=== PATIENT | male | born 1945 | race Caucasian/White ===

== ENCOUNTER 2017-04-14 09:59 | Day surgery (SDC) | payer MEDICARE, OTHER ==
[~2017-04-14 09:59] MED LIST: Acetaminophen TAB* 325 MG PO PRN; Buffered Lidocaine 0.9% SYRIN* 5 ML/SYR SYRINGE INTRADERM ONE
[2017-04-14] MEDS ORDERED: Lidocaine 2% EPI 1:200000 MPF* 20 ML VIAL ONE (10:46)
[2017-04-14] MEDS ORDERED: Buffered Lidocaine 0.9% SYRIN* 5 ML/SYR SYRINGE ONE (10:46)
[2017-04-14] MEDS ORDERED: Povidone Iodine 5% OPTH* 30 ML BTL ONE (10:46)
[2017-04-14] MEDS ORDERED: Proparacaine 0.5% OPHTH.SOL* 15 ML BTL ONE (10:46)
[2017-04-14] MEDS ORDERED: Neomycin/Polymy/Dex OPTH.SUSP* MAXITROL 0.1% 5 ML ONE (10:46)
[2017-04-14] MEDS ORDERED: Phenylephrine 2.5% OPTH.SOL* 2 ML BTL ONE (10:46)
[2017-04-14] MEDS ORDERED: Flurbiprofen 0.03% OPTH.SOL* 2.5 ML BTL ONE (10:46)
[2017-04-14] MEDS ORDERED: Cyclopentolate 1% OPTH.SOL* 2 ML BTL ONE (10:46)
[2017-04-14] MEDS ORDERED: acetaZOLAMIDE TAB* 250 MG ONE (10:46)
[2017-04-14] MEDS ORDERED: Lidocaine 1% MPF* 2 ML VIAL ONE (10:46)
[2017-04-14] MEDS ORDERED: Midazolam* 1 MG/ML 2 ML VIAL (2 MG) ONE (11:22)
[2017-04-14 12:40] VITALS: BP 154/90
--- NOTE | 2017-04-15 02:49 | OP ---
DATE OF OPERATION: 04/14/17 [facility] DATE OF : 41 SURGEON: Lennox Stoddard M.D. PREOPERATIVE DIAGNOSIS: Cataract, left eye. POSTOPERATIVE DIAGNOSIS: Cataract, left eye. OPERATIVE PROCEDURE: Phacoemulsification, left eye, with IOL. DESCRIPTION OF PROCEDURE: The patient was brought to the operating room after being given 1/2% Alcaine with epinephrine drops in the preoperative area. The eye was prepped and draped in the usual sterile fashion. Sterile drape and eyelid speculum were placed. Again, topical 1/2% Alcaine with epinephrine was given. A paracentesis incision was made at the 3 o'clock position with the No.75 blade. Clear cornea incision 2.2 x 2.2-mm was created at the 6 o'clock position starting at the anterior limbus using the 2.2-mm keratome. The anterior chamber was irrigated with 0.4 mL of 1% non-preservative intracameral lidocaine and filled with DisCoVisc. A capsulorrhexis was completed using the cystotome and the Utrata forceps. Hydrodissection was performed with balanced salt solution. The lens nucleus was removed with the Phacoemulsification handpiece without incident. Cortex was removed with the irrigation-aspiration handpiece. The capsular bag was re-inflated using DisCoVisc and an SN60WF 21.5 implant was inserted with the shooter. The irrigation-aspiration handpiece was used to remove all residual DisCoVisc. The eye was refilled with balanced salt solution and the wound checked and found to be watertight. Topical Maxitrol drops were given. [id number]/[facility] #: [id number] [facility]ITAL[facility]
== END 2017-04-14 12:52 | disposition home or self-care (01) ==
LOC: OREAST 09:59
PROVIDERS: ATTEND Specialist
DX: H26.9 Unspecified cataract (principal); Z87.891 Personal history of nicotine dependence
CPT/HCPCS: A9270-GY; J2250; V2632

== ENCOUNTER 2017-04-21 10:36 | Day surgery (SDC) | payer MEDICARE, OTHER ==
[~2017-04-21 10:36] MED LIST changes: +Buffered Lidocaine 0.9% SYRIN* 5 ML/SYR SYRINGE ONE; +Cyclopentolate 1% OPTH.SOL* 2 ML BTL ONE; +Ketorolac 0.5% OPHTH (NF) 0.5 % 5 ML BTL ONE; +Lidocaine 1% MPF* 2 ML VIAL ONE; +Lidocaine 2% EPI 1:200000 MPF* 20 ML VIAL ONE; +Neomycin/Polymy/Dex OPTH.SUSP* MAXITROL 0.1% 5 ML ONE; +Phenylephrine 2.5% OPTH.SOL* 2 ML BTL ONE; +Povidone Iodine 5% OPTH* 30 ML BTL ONE; +Proparacaine 0.5% OPHTH.SOL* 15 ML BTL ONE; +acetaZOLAMIDE TAB* 250 MG ONE
[2017-04-21] MEDS ORDERED: Midazolam* 1 MG/ML 2 ML VIAL (2 MG) ONE (13:01)
[2017-04-21] MEDS ORDERED: fentaNYL* 50 MCG/ML 2 ML VIAL (100 MCG VIAL) ONE (13:09)
[2017-04-21 14:16] VITALS: BP 148/70
--- NOTE | 2017-04-21 15:48 | OP ---
DATE OF OPERATION: 04/21/2017 - [facility] DATE OF : 1945. SURGEON: Lennox Stoddard M.D. PREOPERATIVE DIAGNOSIS: Cataract right eye. POSTOPERATIVE DIAGNOSIS: Cataract right eye. OPERATIVE PROCEDURE: Phacoemulsification right eye with IOL. DESCRIPTIO OF PROCEDURE: The patient was brought to the operating room after being given 1/2% Alcaine with epinephrine drops in the preoperative area. The eye was prepped and draped in the usual sterile fashion. Sterile drape and eyelid speculum were placed. Again, topical 1/2% Alcaine with epinephrine was given. A paracentesis incision was made at the 9 o'clock position with the No.75 blade. Clear cornea incision 2.2 x 2.2-mm was created at the 12 o'clock position starting at the anterior limbus using the 2.2-mm keratome. The anterior chamber was irrigated with 0.4 mL of 1% non-preservative intracameral lidocaine and filled with DisCoVisc. A capsulorrhexis was completed using the cystotome and the Utrata forceps. Hydrodissection was performed with balanced salt solution. The lens nucleus was removed with the Phacoemulsification handpiece without incident. Cortex was removed with the irrigation-aspiration handpiece. The capsular bag was re-inflated using DisCoVisc and an SN60WF 21.5 implant was inserted with the shooter. The irrigation-aspiration handpiece was used to remove all residual DisCoVisc. The eye was refilled with balanced salt solution and the wound checked and found to be watertight. Topical Maxitrol drops were given. [id number]/[facility] #: [id number] [facility]ENTERMisael
== END 2017-04-21 13:27 | disposition home or self-care (01) ==
LOC: OREAST 10:36
PROVIDERS: ATTEND Specialist
DX: H25.811 Combined forms of age-related cataract, right eye (principal); Z96.1 Presence of intraocular lens; H40.013 Open angle with borderline findings, low risk, bilateral; F32.9 Major depressive disorder, single episode, unspecified; F41.9 Anxiety disorder, unspecified; Z87.891 Personal history of nicotine dependence
CPT/HCPCS: A9270-GY; J2250; J3010; V2632

== ENCOUNTER 2018-09-03 19:31 | Observation (INO) | payer MEDICARE, OTHER ==
--- NOTE | 2018-09-03 19:39 | ED ---
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 Pt had driven downtown, and was walking to a store, when he suddenly felt dizzy and passed out. Patient says he was feeling OK earlier in the day. Pt has a known cough which is at baseline, and he has been seeing a spine specialist because his breathing has been "off" for the past few months. He uses an oxygen concentrator at home. Associated sx: SOB, incontinence. Denies fever, CP, pedal edema. He has not taken drugs today nor drank ETOH. He is a former smoker. PMHx: bipolar. The patient lives alone and is retired. - History Of Current Complaint Hx Obtained From: Patient, EMS Onset/Duration: Sudden Onset, Resolved - syncope Associated Signs And Symptoms: Positive: Dizziness, SOB, Other - pos: incontinence. Negative: Chest Pain, Edema, Fever - Allergies/Home Medications Allergies/Adverse Reactions: Allergies Allergy/AdvReac Type Severity Reaction Status Date / Time No Known Allergies Allergy Verified 04/21/17 10:57 Home Medications: Home Medications predniSONE TAB* [Deltasone 20 MG TAB*] 40 mg PO DAILY 09/03/18 [History Confirmed 09/03/18] PMH/Surg Hx/FS Hx/Imm Hx Previously Healthy: No GI History: Reports: Hx Ulcer - HX OF Musculoskeletal History: Reports: Hx Tendonitis - ANKLES? Sensory History: Reports: Hx Cataracts - BILATERAL, Hx Contacts or Glasses - READING GLASSES Denies: Hx Hearing Aid Opthamlomology History: Reports: Hx Cataracts - BILATERAL, Hx Contacts or Glasses - READING GLASSES - Surgical History Surgery Procedure, Year, and Place: tonsillectomy A CHILD Hx Anesthesia Reactions: No - Family History Family History: neg: anaesthesia reaction - Social History Occupation: Retired Lives: Alone Alcohol Use: Daily Alcohol Amount: 3 OUNCES DAILY Substance Use Type: Reports: None Hx Tobacco Use: No Smoking Status (MU): Former Smoker Amount Used/How Often: < 1/2 PPPD OFF AND ON X 10 YEARS Have You Smoked in the Last Year: No Review of Systems Negative: Fever Negative: Chest Pain Positive: Shortness Of Breath Positive: incontinence Negative: Edema Neurological: Other - pos: dizziness Positive: Syncope All Other Systems Reviewed And Are Negative: Yes Physical Exam - Summary Physical Exam Summary: Appearance: Elderly male who is lying in bed in obvious repiratory distress, tachypnic and with labored breathing. Skin: Warm, dry, no obvious rash Eyes: sclera anicteric, no conjunctival pallor ENT: mucous membranes moist, pharynx appears normal Neck: Supple, nontender Respiratory: Breath sounds clear, good aeration Cardiovascular: Normal S1, S2. No murmurs. Normal distal pulses in tibial and radial bilaterally. Mild pedal edema. Abdomen: Soft, nontender, normal active bowel sounds present Musculoskeletal: Normal, Strength/ROM Intact. Mild pedal edema. Neurological: A&Ox3, awake and alert, mentation is normal, speech is fluent and appropriate Psychiatric: affect is normal, does not appear anxious or depressed Triage Information Reviewed: Yes Vital Signs Reviewed: Yes Diagnostics - Laboratory Result Diagrams: 09/03/18 20:26 09/03/18 20:26 Lab Statement: Any lab studies that have been ordered have been reviewed, and results considered in the medical decision making process. - CT CTA CT Interpretation Completed By: Radiologist Summary of CT Findings: IMPRESSION: 1. No pulmonary embolus. However, the main pulmonary artery is mildly enlarged suggesting pulmonary arterial hypertension. 2. Bilateral fibrotic lung disease with peripheral and basal predominance and superimposed centrilobular emphysema. Patchy mid and upper lung groundglass densities may represent activity of underlying lung disease versus mild edema with infection less likely. 3. Mild mediastinal adenopathy, likely reactive. ED provider has reviewed this report. - EKG 19:41 Cardiac Rate: NL - 98 bpm EKG Rhythm: Sinus Rhythm Summary of EKG Findings: Consider R ventricular hypertrophy. 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 Pt had driven downtown, and was walking into a store, when he suddenly felt dizzy and passed out. Patient says he was feeling OK earlier in the day. Pt has a known cough which is at baseline, and he has been seeing a spine specialist because his breathing has been "off" for the past few months. He uses an oxygen concentrator at home. Associated sx: SOB, incontinence. Denies fever, CP, pedal edema. He has not taken drugs today nor drank ETOH. He is a former smoker. PMHx: bipolar. The patient lives alone and is retired. Critical lab values include: lactic acid 3.7, troponin: 0.18. EKG shows SR at 98 bpm, consider R ventricular hypertrophy. Rapid flu A and B are negative. CTA results show "1. No pulmonary embolus. However, the main pulmonary artery is mildly enlarged suggesting pulmonary arterial hypertension. 2. Bilateral fibrotic lung disease with peripheral and basal predominance and superimposed centrilobular emphysema. Patchy mid and upper lung groundglass densities may represent activity of underlying lung disease versus mild edema with infection less likely. 3. Mild mediastinal adenopathy, likely reactive.". Consulted with Dr. Rowe, hospitalist, who will admit patient. - Diagnoses Provider Diagnoses: Respiratory distress, Bronchiectasis - Physician Notifications Discussed Care Of Patient With: Doris Rowe - hospitalist Time Discussed With Above Provider: 20:39 Instructed by Provider To: Admit As Inpatient Discharge - Sign-Out/Discharge Documenting (check all that apply): Patient Departure - ADMIT - Discharge Plan Condition: Guarded Disposition: ADMITTED TO [facility] - Billing Disposition and Condition Condition: GUARDED Disposition: Admitted to [facility] - Attestation Statements Document Initiated by Scribe: Yes Documenting Scribe: Shahla Pacheco Provider For Whom Allie is Documenting (Include Credential): Dr. Xu Chowdary MD Scribe Attestation: Shahla Mireles, scribed for Dr. Xu Chowdary MD on 09/04/18 at 0518. Scribe Documentation Reviewed: Yes Provider Attestation: The documentation as recorded by the Shahla browne accurately reflects the service I personally performed and the decisions made by me, Dr. Xu Chowdary MD Status of Scribe Document: Viewed
[2018-09-03] MEDS ORDERED: Iodixanol* (CONTRAST) 320 MG/ML 100 ML SDV IV ONE (19:49)
[2018-09-03] MEDS ORDERED: methylPREDNISolone 125 MG* 2 ML VIAL IV ONE (20:33)
[2018-09-03 20:37] LABS: ABS Basophils 0.1 10^3/ul (0-0.2); ABS Eosinophils 0.1 10^3/ul (0-0.6); ABS Lymphocytes 0.6 10^3/ul (1.0-4.8); ABS Monocytes 0.7 10^3/ul (0-0.8); ABS Nucleated RBC 0 10^3/ul; Eosinophil % 0.6 %; Hematocrit 47 % (42-52); Hemoglobin 15.1 g/dl (14.0-18.0); Lymphocyte % 4.4 %; Mean Corpuscular HGB Conc 32 g/dl (31-36); Mean Corpuscular Hemoglobin 32 pg (27-31); Mean Corpuscular Volume 101 fL (80-94); Nucleated Red Blood Cells % 0.1; Platelet Count 311 10^3/ul (150-450); Red Blood Count 4.68 10^6/ul (4.00-5.40); Red Cell Distribution Width 16 % (10.5-15); White Blood Count 13.4 10^3/ul (3.5-10.8)
[2018-09-03 20:53] LABS: Albumin 3.4 g/dL (3.2-5.2); BUN/Creatinine Ratio 19.3 (8-20); Calcium 8.4 mg/dL (8.6-10.3); EGFR African American 62.5 (>60); EGFR Non-African American 51.7 (>60); Globulin 3.4 g/dL (2-4); Potassium 4.8 mmol/L (3.5-5.0); Total Bilirubin 0.7 mg/dL (0.2-1.0); Total Protein 6.8 g/dL (6.4-8.9)
[2018-09-03 20:57] LABS: Troponin I 0.18 ng/mL (<0.04)
[2018-09-03 21:01] LABS: Influenza A Molecular NEGATIVE (Negative); Influenza B Molecular NEGATIVE (Negative)
[2018-09-03 21:47] LABS: C Reactive Protein 20.41 mg/L (<8.01)
[2018-09-03] MEDS ORDERED: Acetaminophen TAB* 325 MG PO PRN ×2 (21:47→21:49)
[2018-09-03] MEDS ORDERED: Thiamine IV* 100 MG/ML 2 ML VIAL IM ONE (21:47)
[2018-09-03] MEDS ORDERED: traZODone TAB* 50 MG TAB PO PRN (21:48)
[2018-09-03] MEDS ORDERED: cefTRIAXone(*) 1 GM in NS 0.9% 50 ML* 50 ML IVPB SCH (22:00)
[2018-09-03] MEDS ORDERED: Aspirin TAB* 325 MG PO ONE (22:00)
[2018-09-03] MEDS ORDERED: NS 0.9% 1000 ML** 1,000 ML IV SCH (22:00)
[2018-09-03] MEDS ORDERED: Azithromycin IV(*) 500 MG in NS 0.9% 250 ML* 250 ML IVPB SCH (22:00)
--- NOTE | 2018-09-03 23:18 | HP ---
CC: Primary care provider; Dr. Collins ADDENDUM: Include medication list is as follows: 1. Gabapentin 100 mg b.i.d. 2. Bupropion SR 100 mg daily. 3. Paroxetine 10 mg daily. 4. Trazodone 100 mg at night p.r.n. [id number]/[facility] #: [id number] MTDD
--- NOTE | 2018-09-03 23:59 | HP ---
MEDICATION ADDENDUM NOW INCLUDED ON THIS REPORT CC: Dr. Walters; Dr. Collins HISTORY AND PHYSICAL: DATE OF ADMISSION: 09/03/18 PRIMARY CARE PROVIDER: Dr. Walters. CHIEF COMPLAINT: Syncope/near syncope. HISTORY OF PRESENT ILLNESS: Lennox Irwin is a 72-year-old male with a recent diagnosis of pulmonary fibrosis, who is supposed to be on 4 L of oxygen during exertion and at night, who went over to get his vodka at a liquor store today without any oxygen. The patient stated that his portable oxygen tank is too bulky and he would not be able to carry it down the stairs. Due to that, he goes shopping without oxygen. Today, on his way to the store, he got very short of breath. He went down on all fours on the sidewalk. Shortly thereafter , he noted that someone was calling the ambulance. The patient stated that he did not pass out. He was incontinent of urine when he presented to the ED. He denies any seizure like activity. He denies any chest pain, but he stated that he was very short of breath as he usually is with exercise when he does not use oxygen. When he presented to the emergency department, he was placed on oxygen with good results. Once again, he complains of no chest pain and otherwise, he had been in his usual state of health. He feels mildly tremulous and he stated that he drinks half a pint of vodka on a daily basis for the past 3 years. He never suffered from withdrawals. The patient is going to be placed on overnight observation with a diagnosis of near syncope. PAST MEDICAL HISTORY: 1. History of recently diagnosed pulmonary fibrosis, oxygen dependent at 2 L via nasal cannula continuously and 4 L with exercise and at night. 2. History of depression. ALLERGIES: No known drug allergies. FAMILY HISTORY: Positive for father who was due to CA, but history of bladder cancer; mother who had history of sudden CA. SOCIAL HISTORY: The patient is and retired. As a surrogate, he named his ex-, Chuy Hernandez. The patient denies any current tobacco or drug use. He had been drinking half a pint of vodka on a daily basis for the past 3 years. REVIEW OF SYSTEMS: Negative for chest pain. Negative for headache. Negative for any focal neurological deficits. Positive for urine incontinence as mentioned above. Positive for near syncope. Negative for loss of consciousness. All the remaining 12 systems were reviewed with the patient and were otherwise negative. PHYSICAL EXAMINATION GENERAL: The patient is a very pleasant 72-year-old male who is in no acute distress. Alert, awake and oriented x3. VITAL SIGNS: Blood pressure 156/81, heart rate of 88 and regular, respiratory rate 24, oxygen saturation 97% on oxygen at 15 L, temperature of 98.2. HEENT: Head: Atraumatic, normocephalic. Eyes: Pupils are equal, reactive to light and accommodation. Oropharynx clear. Mucosa moist. NECK: Supple. No JVD. No bruits bilaterally. RESPIRATORY: Clear to auscultation bilaterally. CARDIOVASCULAR: Regular rate and rhythm. No murmur. ABDOMEN: Soft, nontender. Bowel sounds are present in all 4 quadrants. EXTREMITIES: There is no edema. Pulses are 2+ bilaterally. There is no clubbing or cyanosis. NEURO EVALUATION: Speech is clear. Cranial nerves II through XII grossly intact. Motor strength is 5/5 bilaterally. The patient has mild tremors noted on bilateral upper extremities. SKIN: On evaluation of the skin, the patient has scattered pustular lesions on his upper chest with some spider angiomas noted. There is also a scratch-like appearing abrasion on his chest that is covered with eschar. DIAGNOSTIC STUDIES/LAB DATA: White blood cell count of 13.4, hemoglobin 15.1, hematocrit 47, MCV of 101, and platelets of 311. ABG showed pH of 7.4, pCO2 of 33, pO2 of 94, bicarb of 22. Sodium was 138, potassium 4.8, chloride 108, carbon dioxide 21, BUN 26, creatinine 1.35. Liver function tests showed AST of 55, ALT of 64, alkaline phosphatase of 96. Troponin of 0.18. C-reactive protein of 20.4. Lactic acid of 3.7. Influenza testing was negative. CT angiogram, impression: "No pulmonary embolus. However, the main pulmonary artery is mildly enlarged suggesting pulmonary arterial hypertension. Bilateral fibrotic lungs change with peripheral and basal predominance, superimposed centrilobular emphysema. Patchy mid and upper lung ground-glass densities, may represent activity of underlying lung disease versus mild edema with infection less likely." The patient's EKG showed sinus rhythm with a heart rate of 80 beats per minute with negative T waves in leads V3 and V4. Comparing with prior EKG from 2016, the negative T waves are new. ASSESSMENT AND PLAN: 1. Syncope/near syncope. At this point, the patient was reported by the ambulance crew that he suffered from syncope. The patient himself stated that that he does not recall passing out and he remembers to be awake throughout the episode of being on the sidewalk and being picked up by the ambulance. I suspect the cause of the patient's syncope is marked hypoxemia since the patient is supposed to use 4 L of oxygen when ambulating and 2 L when stationary and he was not using oxygen at all when ambulating to the liquor store. At this point, I suspect that the patient's elevated troponin is demand ischemia from hypoxemia and lactic acidosis is likely also related to that. Nevertheless, the patient is going to be observed in telemetry monitored bed with serial troponins. He is going to be administered an aspirin and transthoracic echocardiogram is going to be obtained in the morning. 2. In regard to the patient's significant alcohol use, the patient appears to be mildly tremulous and likely withdrawing. He is going to be placed on lorazepam withdrawal protocol. 3. The patient's mild elevation of liver function tests is likely due to alcohol abuse. 4. The patient's acute kidney injury with creatinine of 1.35 and the patient's baseline creatinine is 1.1, is likely related to hypoperfusion and anoxic injury. 5. The patient has elevated lactic acid, but it is likely due to hypoperfusion. He does not appear septic and there is no evidence of an infection. 6. The patient's code status is full and his surrogate is his . TIME SPENT: Approximately 65 minutes was spent on the admission of this patient , more than half that time was spent [id number] with the patient during the interview and physical exam. ADDENDUM: Include medication list is as follows: 1. Gabapentin 100 mg b.i.d. 2. Bupropion SR 100 mg daily. 3. Paroxetine 10 mg daily. 4. Trazodone 100 mg at night p.r.n. [id number]/[facility] #: [id number]/[facility] #: [id number] [facility]
[2018-09-04] MEDS: Folic Acid TAB* 1 MG PO SCH ×2 (00:02→08:22)
[2018-09-04] MEDS: Heparin VIAL(*) 5000 UNITS/ML VIAL (FIVE THOUSAND) SUBCUT SCH ×2 (00:02→06:18)
[2018-09-04 05:41] LABS: ABS Basophils 0 10^3/ul (0-0.2); ABS Eosinophils 0 10^3/ul (0-0.6); ABS Lymphocytes 0.6 10^3/ul (1.0-4.8); ABS Monocytes 0.1 10^3/ul (0-0.8); ABS Neutrophils 6.2 10^3/ul (1.5-7.7); ABS Nucleated RBC 0 10^3/ul; Eosinophil % 0 %; Hematocrit 44 % (42-52); Hemoglobin 14.6 g/dl (14.0-18.0); Mean Corpuscular HGB Conc 33 g/dl (31-36); Mean Corpuscular Hemoglobin 33 pg (27-31); Mean Corpuscular Volume 100 fL (80-94); Mean Platelet Volume 7.2 fL (7.4-10.4); Nucleated Red Blood Cells % 0.3; Platelet Count 287 10^3/ul (150-450); Red Blood Count 4.41 10^6/ul (4.00-5.40); Red Cell Distribution Width 16 % (10.5-15)
[2018-09-04 05:57] LABS: BUN/Creatinine Ratio 19.3 (8-20); Calcium 8.5 mg/dL (8.6-10.3); EGFR Non-African American 66.1 (>60); Potassium 4.9 mmol/L (3.5-5.0)
[2018-09-04 06:12] LABS: Troponin I 0.15 ng/mL (<0.04)
[2018-09-04] MEDS: LORazepam TAB(*) 1 MG PO SCH ×2 (08:22)
[2018-09-04] MEDS ORDERED: buPROPion SR TAB.SR* 100 MG PO SCH (09:00)
[2018-09-04] MEDS ORDERED: PARoxetine HCL TAB* 10 MG PO SCH ×2 (09:00)
[2018-09-04] MEDS ORDERED: Thiamine TAB* 100 MG TAB PO SCH (09:00)
[2018-09-04] MEDS ORDERED: Gabapentin CAP(*) 100 MG PO SCH (09:00)
[2018-09-04] MEDS ORDERED: Multivitamins/Minerals TAB PO SCH (09:00)
[2018-09-04 12:16] VITALS: BP 142/76
[2018-09-04] MEDS ORDERED: predniSONE TAB* 20 MG PO SCH (13:00)
--- NOTE | 2018-09-04 13:02 | ECHO ---
Patient: TADEO BRENNER Rec#: [id number] : 1945 Date: 09/04/2018 Age: 72y Height: 173 cm / 68.1 in Weight: 82 kg / 180.7 lbs Sex: M BSA: 1.96 Room#: [facility] Admit Date#: 09/03/2018 Type: Inpatient Referring: Doris Rowe MD Reading: Mauricio Ventura DO Auto Claim Representative: Kym Rosenbaum RDCS,RDMS CC: Tadeo Walters MD Transthoracic Echocardiogram Indication: Syncope BP: 152/80 HR: 77 Rhythm: NSR Findings History: Pulmonary fibrosis, O2 dependent, ETOH Technical Comments: The study quality is fair. Left Ventricle: The left ventricular chamber size is normal. Mild concentric left ventricular hypertrophy is observed. Global left ventricular wall motion and contractility are within normal limits. There is normal left ventricular systolic function. The estimated ejection fraction is 55-60%. Abnormal left ventricular diastolic filling is observed, consistent with impaired relaxation. Left Atrium: The left atrial chamber size is normal. Right Ventricle: The right ventricle is moderately dilated. The right ventricular global systolic function is mildly to moderately reduced. Right Atrium: The right atrium is moderately dilated. Aortic Valve: The aortic valve is trileaflet. The aortic valve leaflets are mildly thickened. Mild aortic leaflet calcification is visualized. There is trace to mild aortic regurgitation. There is no evidence of aortic stenosis. Mitral Valve: The mitral valve leaflets appear normal. There is a trace of mitral regurgitation. There is no evidence of mitral stenosis. Tricuspid Valve: The tricuspid valve leaflets are normal. There is mild tricuspid regurgitation. There is evidence of moderate pulmonary hypertension. Pulmonic Valve: There is no evidence of pulmonic valve thickening. There is trace to mild pulmonic regurgitation. There is no pulmonic stenosis. Pericardium: There is no significant pericardial effusion. Aorta: There is no dilatation of the ascending aorta. The aortic arch is not well visualized. There is mild dilatation of the aortic root. Pulmonary Artery: The main pulmonary artery is not well visualized. Venous: The inferior vena cava is dilated. There is less than 50% respiratory change in the inferior vena cava dimension. Conclusions The left ventricular chamber size is normal. Mild concentric left ventricular hypertrophy is observed. Global left ventricular wall motion and contractility are within normal limits. There is normal left ventricular systolic function. The estimated ejection fraction is 55-60%. The left atrial chamber size is normal. The right ventricle is moderately dilated. The right ventricular global systolic function is mildly to moderately reduced. The right atrium is moderately dilated. There is mild tricuspid regurgitation. There is evidence of moderate pulmonary hypertension. None prior for comparison at time of interpretation Measurements Name Value Normal Range RVIDd (AP) 2D 4.4 cm (0.9 - 2.6) RAd ISD 4CH 5.6 cm (3.4 - 4.9) RA (A4C)W 5.4 cm (2.9 - 4.6) IVSd (2D) 1.1 cm (0.6 - 1) LVPWd (2D) 1.1 cm (0.6 - 1) LVIDd (2D) 4.2 cm (3.6 - 5.4) LVIDs (2D) 3.8 cm - LV FS (2D) 10 % (25 - 45) Aortic Annulus 2 cm (1.4 - 2.6) Ao root diameter (2D) 3.6 cm (2.1 - 3.5) Ascending Ao 3 cm (2.1 - 3.4) LA dimension (AP) 2D 3.3 cm (2.3 - 3.8) LAd ISD 4CH 4.9 cm (2.9 - 5.3) LA ISD 4CH W 3.5 cm (2.5 - 4.5) Name Value Normal Range LA ESV BP (A/L) index 27 ml/m2 - Name Value Normal Range MV E-wave Vmax 0.4 m/sec - MV deceleration time 148 msec - MV A-wave Vmax 0.8 m/sec - MV E:A ratio 0.5 ratio - P. vein S-wave Vmax 0.5 m/sec - P. vein D-wave Vmax 0.4 m/sec - P. vein S:D Vmax ratio 1.2 ratio - P. vein A-wave duration 129 msec - LV septal e' Vmax 0.05 m/sec - LV lateral e' Vmax 0.06 m/sec - LV E:e' septal ratio 9 ratio - LV E:e' lateral ratio 8 ratio - Name Value Normal Range AV Vmax 1.5 m/sec - AV VTI 30 cm - AV peak gradient 9 mmHg - AV mean gradient 5 mmHg - LVOT Vmax 0.9 m/sec - LVOT VTI 18 cm - LVOT peak gradient 3.2 mmHg - LVOT mean gradient 2 mmHg - Name Value Normal Range TR Vmax 3.4 m/sec - TR peak gradient 46 mmHg - RAP 8 mmHg - RVSP 54 mmHg - IVC diameter 2.2 cm - Name Value Normal Range PV Vmax 0.6 m/sec - PV peak gradient 1.4 mmHg -
--- NOTE | 2018-09-04 21:51 | DS ---
CC: Dr. Lennox Walters; Dr. Collins in Pulmonology * DISCHARGE SUMMARY: DATE OF ADMISSION: 09/03/18 DATE OF DISCHARGE: 09/04/18 PRIMARY DIAGNOSIS: Syncope due to hypoxia. SECONDARY DIAGNOSES: 1. Pulmonary fibrosis demonstrated on lung CT, chronic hypoxic respiratory failure. 2. Anxiety. 3. Alcohol abuse. 4. History of depression. MEDICATIONS ON DISCHARGE: 1. Wellbutrin SR 100 mg p.o. daily. 2. Paroxetine 10 mg p.o. b.i.d. 3. Vitamin B12 injection 1000 mcg IM monthly. 4. Gabapentin 100 mg p.o. b.i.d. 5. Prednisone 40 mg p.o. daily. 6. Trazodone 100 mg p.o. q.h.s. 7. Folic acid 1 tab p.o. daily. 8. multivitamin 1 tab p.o. daily. 9. Thiamine 100 mg p.o. daily. HOSPITAL COURSE: The patient was admitted after an episode of near syncope or syncope that occurred while walking to the [employer]. He did not use his oxygen for this trip and does not use oxygen when he is walking his dogs. He is advised to be on 4 L with exertion per minute and 2 L at rest and overnight. The patient's syncope was investigated with EKG that showed normal sinus rhythm, leftward axis, left anterior fascicular block, no acute ischemic changes. His troponin was 0.18 on admission and fell to 0.15 on the following morning. This was thought to be slightly elevated due to demand ischemia. His lactic acid was 3.7, which fell to 1.5 on repeat, which is again thought to be due to poor perfusion of the tissues with hypoxia. The patient's electrolytes otherwise normal with AST and ALT slightly elevated at 55 and 64. Arterial blood gas taken showed pH 7.4, pCO2 of 33, pO2 of 94 in the emergency department. He also had a white count of 13.4, which fell to 7.0 the next day with normal hemoglobin and platelets. His oxygenation falls to as low as 71% when he is not on 4-6 L by face mask. The patient also has been drinking half a pint of vodka per day. He was assessed to have alcohol withdrawal and was given the [facility] protocol. He did receive several doses of Ativan overnight during this short hospital admission. His last dose of Ativan was 1 mg at 8:22 a.m. The patient is adamant about leaving the hospital this afternoon. He states he has to go home and take care of his dogs. The patient is alert, oriented to place and time, and knows he is at risks of not using oxygen and understands the risks of alcohol abuse. The patient has followup planned with Dr. Collins in her office. He did have a chest CT that was completed in the emergency department on 09/03/18, which showed bilateral fibrotic lung disease with peripheral and basal predominance and a superimposed central lobar emphysema. There are patchy mid and upper lung field ground-glass densities. There are no PEs. The patient states he was waiting for this CAT scan to occur for the last month to conclude a diagnosis. DISPOSITION: To home, where he is advised to use oxygen when he is exerting himself at 4 L per minute and use oxygen overnight or rest at 2 L per minute. FOLLOWUP: He is to follow up with Dr. Collins and Dr. Walters in the next week and a half. DIET: His diet should be low salt. ACTIVITY: To walk with oxygen as above. [id number]/[facility] #: [id number] MTDD
== END 2018-09-04 14:30 | disposition home or self-care (01) ==
LOC: ED 19:31 → MEDTELE 21:49
PROVIDERS: ADMIT Internal Medicine; ATTEND Internal Medicine
DX: R55 Syncope and collapse (principal); R09.02 Hypoxemia; J84.10 Pulmonary fibrosis, unspecified; F41.9 Anxiety disorder, unspecified; F10.10 Alcohol abuse, uncomplicated; F32.9 Major depressive disorder, single episode, unspecified; R42 Dizziness and giddiness; Z87.891 Personal history of nicotine dependence
CPT/HCPCS: 36415; 71275; 80048; 80053; 82803; 83605; 84484; 85025; 86140; 87040; 93005; 93306; 96374; 96375; 99284; A9270-GY; G0378; J1644; J2930; J3411; J7512; Q9967